=== PATIENT | female | born 1990 | race Asian ===

== ENCOUNTER 2023-11-28 20:48 | Emergency (ER) | payer OTHER, SELFPAY ==
[2023-11-28 20:49] VITALS: BMI 30.3
[2023-11-28 20:50] VITALS: BP 123/84
[2023-11-28 21:09] LABS: % Basophils 0.4 % (0-2); % Eosinophils 1.5 % (0-6); % Immature Granulocytes 0.5 % (0-0.5); % Lymphocytes 28.7 % (20.5-51.1); % Monocytes 6.4 % (1.7-9.3); % Neutrophils 62.5 % (42.2-75.2); Absolute Eosinophils 0.1 10^3/uL (0-0.7); Absolute Lymphocytes 2.2 10^3/uL (1.2-3.4); Absolute Monocytes 0.5 10^3/uL (0.1-0.6); Absolute Neutrophils 4.7 10^3/uL (1.4-6.5); Hematocrit 35.6 % (37.0-47.0); Hemoglobin 12.5 g/dL (12.0-16.0); Mean Corp Hgb Conc. 35.1 g/dL (33.0-37.0); Mean Corpuscular Hgb 26.7 pg (27.0-31.0); Mean Corpuscular Volume 76.1 fL (81.0-99.0); Mean Platelet Volume 10.6 fL (7.4-10.4); Nucleated Red Blood Cells % 0 %; Platelet Count 207 10^3/uL (130-400); Red Blood Cell Count 4.68 10^6/uL (4.20-5.40); Red Cell Dist. Width 13.4 % (11.5-14.5); White Blood Cell Count 7.5 10^3/uL (4.8-10.8)
[2023-11-28 21:26] LABS: ALT (SGPT) 51 U/L (0-35); AST (SGOT) 48 U/L (14-36); Albumin 4.6 g/dl (3.5-5.0); Alkaline Phosphatase 90 U/L (38-126); Blood Urea Nitrogen 10 mg/dl (7-17); Calcium 9.7 mg/dl (8.4-10.2); Carbon Dioxide 19 mmol/L (22-30); Chloride 105 mmol/L (98-107); Glucose 175 mg/dl (70-99); Potassium 4.1 mmol/L (3.5-5.1); Sodium 137 mmol/L (135-145); Total Bilirubin 0.4 mg/dl (0.2-1.3); Total Protein 7.7 g/dl (6.3-8.2); eGFR > 60.00
[2023-11-28 21:33] LABS: Troponin I < 0.012 ng/ml
[2023-11-28 22:18] VITALS: BP 121/66
[2023-11-28 23:00] VITALS: BP 112/79
--- NOTE | 2023-11-28 23:21 | ED.GENMED ---
History of Present Illness
General
Chief Complaint: Chest Pain
Source: patient, spouse and previous hospital records (Previous ED visit April 15, 2023 with somewhat similar-multiple seemingly unrelated complaints. Unremarkable ED visit at that time.)
Exam Limitations: none
Time Seen by Provider: 11/28/23 22:52
Nursing documentation reviewed up to this point in time: agreed with
History of Present Illness
History of Present Illness:
This is a 33-year-old woman who has history of hmz-sqnhcyn-qbentmolm diabetes that was diagnosed January 2023, history of hyperlipidemia, PCOS. She was started on metformin 500 mg once daily 4 to 5 months ago but with uptrend in hemoglobin A1c,
metformin was titrated up over a month ago to twice daily dosing. With increased dosage patient complains of ongoing abdominal discomfort, frequent diarrhea and after discussing ongoing GI distress with her PCP 2 weeks ago she was recommended to
discontinue twice daily dosing and to return to once daily dosing. Unfortunately she has run out of her metformin 1 week ago, her PCP is currently on vacation, and office staff have not refilled the metformin due to confusion as to ultimate plan
with her diabetes medications.
Along with metformin she is chronically maintained on rosuvastatin as well as spironolactone. She has not run out of these medications.
She also notes intermittent substernal chest pain that began yesterday but has had similar sporadic chest pain over a number of months and presented to this ED April 2023 with similar chest pain. Chest pain is sporadic in nature, questionably
worsened with activity but also noted when she is sitting quietly. She notes intermittent shortness of breath but not necessarily associated with her chest pain. Rare dry cough, sporadic for a few weeks but no fever nor chills. She has had some
intermittent right ear discomfort, occasional nasal congestion but no sore throat.
No palpitations, no dizziness nor lightheadedness, no headache.
She denies risk of but states menses have been very irregular with last menstrual period approximately 2 months ago.
She admits to chronic difficulty losing weight and has discussed weight loss options with her PCP including initiation of a GLP-1 agonist but was recommended to trial metformin first.
No recent travel, she denies leg pain or swelling.
No history of thromboembolism nor CAD nor family history of such.
Her PCP is currently on vacation; she has not attempted to speak with nor make an appointment with another physician in her PCPs practice.
Past History
Past History
ED Past Medical History: Hypercholesterolemia, NIDDM and Other (Obesity)
ED Past Surgical History:
Social History
Tobacco: Non-smoker
Alcohol: None
Drug: None
Personal:
Living: with family
Employment: Not employed
Family History
Family History: Other (Noncontributory)
Phy Exam
Physical Exam
Physical Exam:
GENERAL: 33-year-old woman appears her stated age, awake and alert, pleasant, easily communicative, appears in no acute distress. as well as toddler daughter are accompanying.
EYE: anicteric
NECK: Supple, nontender, no meningismus, no significant adenopathy.
ENT: posterior pharynx is clear, oral mucosa is moist. TM clear b/l, nares patent. Mild tenderness at bilateral TMJ joints. There is full mandible range of motion without difficulty.
CARDIAC: Regular rate and rhythm. no murmur. No rub.
LUNGS: Clear breath sounds bilaterally, no acute respiratory distress, no wheezes/rales/rhonchi
ABDOMEN: Soft, nondistended, without focal tenderness, no r/g, no cvat. normoactive BS.
NEUROLOGICAL: Alert and oriented x3, no focal neuro deficits. Gait is beasley and steady.
SKIN: Warm and dry, normal color, skin intact. No rash.
MUSCULOSKELETAL: No C/C/E. peripheral pulses are full and equal b/l. No palpable tenderness.
PSYCH: Normal and appropriate interaction.
Scores
Heart Score for Chest Pain Patients
STEMI patient?: No
History: Slightly or Non-Suspicious
ECG: Normal
Age: </= 45 years
Risk Factors: 1 or 2 Risk Factors
Troponin: </= Normal Limit
Heart Score for Chest Pain Patients: 1
Heart Score Risk: 2.5% MACE over next 6 weeks
Course
Orders/Labs/Results
Orders:
Orders
11/28/23 20:53
Electrocardiogram (*1) Urgent
Reason for Study: Chest Pain
EKG- Treatment ONCE
11/28/23 21:04
CMP [Comprehensive Metabolic Panel] Urgent
Complete Blood Count/With Diff Urgent
HCG, Serum Qualitative Screen Urgent
NT-proBNP Urgent
Comment: ADD ON
Troponin I Urgent
11/28/23 22:59
Add On- LAB Urgent
Tests Added?: BNP
11/28/23 23:19
Add On- LAB Urgent
Tests Added?: serum qual HCG
Abnormal Lab Results
11/28/23
21:04
Hct 35.6 L %
(37.0-47.0)
MCV 76.1 L fL
(81.0-99.0)
MCH 26.7 L pg
(27.0-31.0)
MPV 10.6 H fL
(7.4-10.4)
Carbon Dioxide 19 L mmol/L
(22-30)
Creatinine 0.5 L mg/dL
(0.6-1.0)
Glucose 175 H mg/dl
(70-99)
AST 48 H U/L
(14-36)
ALT 51 H U/L
(0-35)
11/28/23 21:04
11/28/23 21:04
Vital Signs
Initial and Last Documented VS:
Initial Vital Signs
Temp Pulse Resp BP Pulse Ox
98.0 F 82 16 123/84 97
11/28/23 20:50 11/28/23 20:50 11/28/23 20:50 11/28/23 20:50 11/28/23 20:50
Last Documented Vital Signs
Temp Pulse Resp BP Pulse Ox
97.9 F 78 18 102/75 98
11/28/23 22:18 11/29/23 00:26 11/29/23 00:26 11/29/23 00:26 11/29/23 00:26
MDM/Problems Addressed
Differential Diagnosis Includes:
Patient presents with multiple seemingly unrelated complaints, all sporadic, ongoing for a number of months perhaps longer.
She does have history of nondependent diabetes, currently tolerating once daily metformin but ran out of this a week ago.
Intermittent chest pain, intermittent shortness of breath, somewhat chronic right ear discomfort.
Overall exam is benign. Mild TMJ discomfort more so on the right than left which I suspect is cause for her right ear discomfort. TM, external canal are clear.
EKG is unremarkable and unchanged from previous in April.
Labs are unremarkable including negative troponin.
She does have an element of allergic rhinitis on exam and this may be a source of her intermittent cough, SOB.
Lungs are clear to auscultation.
Will check BNP as well as serum hCG.
Recommend resumption of once daily metformin, prescription will be provided.
As patient is overweight, has history of diabetes she certainly a candidate for GLP-1 agonist and recommend she discuss this possibility with her PCP. Many insurances require at least a 3-month trial of metformin which patient has already completed.
Intermittent chest pain may be an element of acid reflux, chest wall pain. Overall sporadic and mild in nature. No risk factors for thromboembolism.
If BNP, hCG negative will plan to discharge to home with a prescription for metformin and recommendations for prompt follow-up with PCP.
Chronic conditions affecting care: DM and Other (Hyperlipidemia)
*Pulse Oximetry
Patient hypoxic: no
*EKG
Interpreted by ED Provider?: Yes
Interpretation: normal
Comparison EKG: no changes (Unchanged from previous April 2023)
Rate: normal
Rhythm: sinus
[place]: normal axis
Interval: normal interval
QRS Pattern: normal QRS
Ischemia: no ischemia
*Personal Assistant Interpretation
Rate: normal
Interpretation: normal
Rhythm: sinus
*Critical Care Note
Total Time (30-74mins, 75-104mins- exclusive of procedures): Not Applicable
ED Attending Note
-
Portions of this chart may have been created with voice recognition software.� Occasional wrong word or��sound alike� substitutions may have occurred due to the inherent limitations of voice recognition software.
Discharge Plan
Departure
Patient Disposition: Home (Routine Discharge)
Date of Disposition: 11/29/23
Time of Disposition: 00:14
Patient with high blood pressure during this ER visit?: No
Condition: Good
Discharge Problem:
Nonspecific chest pain, NIDDM
Instructions: Chest Pain DCA Follow Up
Prescriptions:
New
metformin 500 mg tablet extended release 24 hr
500 mg PO DAILY Qty: 30 1RF
Ozempic 0.25 mg or 0.5 mg (2 mg/3 mL) pen injector
0.25 mg SC QWEEK Qty: 3 0RF
Rx Instructions:
for 4 weeks, then increase to 0.5 mg weekly
No Action
metformin 500 mg Tablet
500 mg PO DAILY
rosuvastatin 10 mg Tablet
10 mg PO DAILY
sulfamethoxazole-trimethoprim [Bactrim DS] 800-160 mg tablet
1 tab PO BID Qty: 13 0RF
Referrals:
NONE,* [Active] - Call in 1-3 days for appt
Interventions
Interventions:
*Risk Screen - Suicide Last Done: 11/28/23 22:50
*General Assessment Last Done: 11/28/23 20:50
*Neglect/Abuse Screening Last Done: 11/29/23 00:27
ED- Fall Risk Assessment Last Done: 11/28/23 22:35
*ED COVID-19 Vaccine History Last Done: 11/28/23 20:50
*Nursing Disposition Last Done: 11/29/23 00:30
ED- Cardiac Assessment Last Done: 11/28/23 22:33
Discharge Date and Time
Discharge Date/Time: 11/29/23 00:30
Print Language: GREENLANDIC
[2023-11-28 23:46] LABS: NT-proBNP < 20.0 pg/ml
[2023-11-29 00:06] LABS: HCG, Serum Qualitative Screen Negative
[2023-11-29 00:26] VITALS: BP 102/75
== END 2023-11-29 00:30 | disposition home or self-care (01) ==
LOC: EMR 20:48
PROVIDERS: Emergency Medicine; EMERGENCY PHYSICIAN Emergency Medicine
DX: R07.89 Other chest pain (principal); R10.9 Unspecified abdominal pain; R06.02 Shortness of breath; R19.7 Diarrhea, unspecified; M54.9 Dorsalgia, unspecified; R05.9 Cough, unspecified; E11.9 Type 2 diabetes mellitus without complications; J30.9 Allergic rhinitis, unspecified; E28.2 Polycystic ovarian syndrome; E78.00 Pure hypercholesterolemia, unspecified; E66.9 Obesity, unspecified; Z79.899 Other long term (current) drug therapy; Z79.84 Long term (current) use of oral hypoglycemic drugs
CPT/HCPCS: 99283; 80053; 83880; 84484; 84703; 85025; 93005

== ENCOUNTER 2024-06-03 22:11 | Emergency (ER) | payer OTHER, SELFPAY ==
[2024-06-03 22:14] VITALS: BP 127/94
[2024-06-03 22:38] LABS: % Basophils 0.2 % (0-2); % Eosinophils 1.3 % (0-6); % Immature Granulocytes 0.4 % (0-0.5); % Lymphocytes 30.7 % (20.5-51.1); % Monocytes 7.4 % (1.7-9.3); Absolute Eosinophils 0.1 10^3/uL (0-0.7); Absolute Lymphocytes 2.8 10^3/uL (1.2-3.4); Absolute Monocytes 0.7 10^3/uL (0.1-0.6); Absolute Neutrophils 5.4 10^3/uL (1.4-6.5); Hematocrit 37.2 % (37.0-47.0); Hemoglobin 12.6 g/dL (12.0-16.0); Mean Corp Hgb Conc. 33.9 g/dL (33.0-37.0); Mean Corpuscular Hgb 27.3 pg (27.0-31.0); Mean Corpuscular Volume 80.5 fL (81.0-99.0); Mean Platelet Volume 10.4 fL (7.4-10.4); Nucleated Red Blood Cells % 0 %; Platelet Count 212 10^3/uL (130-400); Red Blood Cell Count 4.62 10^6/uL (4.20-5.40); Red Cell Dist. Width 13.2 % (11.5-14.5)
[2024-06-03 22:56] LABS: ALT (SGPT) 27 U/L (0-35); AST (SGOT) 24 U/L (14-36); Albumin 4.5 g/dl (3.5-5.0); Alkaline Phosphatase 83 U/L (38-126); Blood Urea Nitrogen 10 mg/dl (7-17); Carbon Dioxide 24 mmol/L (22-30); Chloride 103 mmol/L (98-107); Glucose 123 mg/dl (70-99); Potassium 4.2 mmol/L (3.5-5.1); Sodium 138 mmol/L (135-145); Total Bilirubin 0.2 mg/dl (0.2-1.3); Total Protein 7.6 g/dl (6.3-8.2); eGFR > 60.00
[2024-06-03 23:16] VITALS: BP 128/92
[2024-06-03 23:19] LABS: Troponin I < 0.012 ng/ml
--- NOTE | 2024-06-03 23:21 | ED.GENMED ---
History of Present Illness
<ROLF Shen - Last Filed: 06/04/24 02:33>
General
Chief Complaint: Breathing Problem
Source: patient
Exam Limitations: none
Time Seen by Provider: 06/03/24 23:10
History of Present Illness
History of Present Illness:
This is a 33 year old female that comes in with c/o SOB and chest discomfort. States that she has trouble breathing when she lays down and sits. States that she has chest discomfort and pain in the middle of her back. States that this started 3 days
ago. States that she has an appointment with the PCP tomorrow but decided to come in tonight. States that she has discomfort with taking a deep breath. States that she has a headache across her forehead and feels it is hard to focus. Denies any
fever, chills, abd pain, nausea, vomiting, diarrhea, urinary burning
Past History
<ROLF Shen - Last Filed: 06/04/24 02:33>
Past History
ED Past Medical History: Hypercholesterolemia, NIDDM and Other (Obesity)
ED Past Surgical History:
Social History
Tobacco: Non-smoker
Alcohol: None
Drug: None
Personal:
Living: with family
Employment: Not employed
Family History
Family History: Other (Noncontributory)
Review of Systems
<ROLF Shen - Last Filed: 06/04/24 02:33>
Review of Systems
All Other Systems: ROS reviewed and negative except as documented in HPI and ROS
Constitutional: Reports no symptoms; Denies fever or chills
EENT: Reports no symptoms
Respiratory: Reports trouble breathing; Denies cough
Cardiac: Reports chest pain
ABD/GI: Reports no symptoms; Denies abdominal pain, nausea, vomiting or diarrhea
: Reports no symptoms; Denies dysuria, frequency or urgency
Musculoskeletal: Reports no symptoms
Skin: Reports no symptoms
Neurological: Reports headache (across her forehead) and other (hard to focus)
Psychiatric: Reports no symptoms
Phy Exam
<ROLF Shen - Last Filed: 06/04/24 02:33>
General Physical Exam
General Presentation: no apparent distress
General age: appears stated age
General Skin: warm and dry
General Habitus: normal
General Mental: alert
General Hydration: appears well hydrated
ENT Exam
ENT Exam: TM's normal, pharynx normal and neck supple
Eye Exam
Eye Exam: EOMI
Cardiovascular Exam
Cardiovascular Exam: regular rate/rhythm, no edema, no murmur and normal peripheral pulses
Pulmonary Exam
Pulmonary Exam: lungs clear, no respiratory distress, no rales, chest non tender, no crackles, no rhonchi, no wheezing and no cough
Gastrointestinal Exam
Gastrointestinal Exam: normal bowel sounds, soft, no organomegaly, no pulsatile mass, non distended and tender (Slight epigastric tenderness with palpation that cause pain up into her chest)
Musculoskeletal Exam
Musculoskeletal Exam: full ROM and no edema
Skin Exam
Skin Exam: normal color, warm/dry, no rash and no petechia
Psychiatric Exam
Psychiatric Exam: normal mood/affect
Course
<ROLF Shen - Last Filed: 06/04/24 02:33>
Orders/Labs/Results
Orders:
Orders
06/03/24 22:17
EKG [Electrocardiogram (*1)] Urgent
Reason for Study: Shortness of Breath
EKG- Treatment ONCE
06/03/24 22:30
Complete Blood Count/With Diff Urgent
Comprehensive Metabolic Panel Urgent
HCG, Serum Qualitative Screen Urgent
Comment: ADD ON
Troponin I Urgent
06/03/24 23:20
Add On- LAB Urgent
Tests Added?: HCG
COVID-19 Antigen Urgent
Source: Nasal Swab
D-Dimer Urgent
CR Chest - 2 Views Urgent
Comment:
Reason For Exam: SOB, chest pain
06/03/24 23:21
Pantoprazole [Protonix IV] 40 mg IV NOW STA
06/03/24 23:26
Electrocardiogram (*1) Urgent
Reason for Study: Chest Pain
Other Reason for Exam: Repeat with Troponin
EKG- Treatment ONCE
06/04/24 00:23
Troponin I Urgent
06/04/24 00:39
Sucralfate Suspension [Carafate Suspension] 1 gm PO NOW STA
Abnormal Lab Results
06/03/24
22:30
MCV 80.5 L fL
(81.0-99.0)
Absolute Monos (auto) 0.7 H 10^3/uL
(0.1-0.6)
Glucose 123 H mg/dl
(70-99)
06/03/24 22:30
06/03/24 22:30
Hyperglycemia. Troponin <0.012. COVID negative, HCG negative,
Vital Signs
Initial and Last Documented VS:
Initial Vital Signs
Temp Pulse Resp BP Pulse Ox
97.5 F 69 18 127/94 99
06/03/24 22:14 06/03/24 22:14 06/03/24 22:14 06/03/24 22:14 06/03/24 22:14
Last Documented Vital Signs
Temp Pulse Resp BP Pulse Ox
97.5 F 84 16 108/61 99
06/03/24 22:14 06/04/24 00:45 06/04/24 00:45 06/04/24 00:42 06/03/24 23:17
<Jose Aguayo, DO - Last Filed: 06/04/24 00:22>
Orders/Labs/Results
Orders:
Orders
06/03/24 22:17
EKG [Electrocardiogram (*1)] Urgent
Reason for Study: Shortness of Breath
EKG- Treatment ONCE
06/03/24 22:30
Complete Blood Count/With Diff Urgent
Comprehensive Metabolic Panel Urgent
HCG, Serum Qualitative Screen Urgent
Comment: ADD ON
Troponin I Urgent
06/03/24 23:20
Add On- LAB Urgent
Tests Added?: HCG
COVID-19 Antigen Urgent
Source: Nasal Swab
D-Dimer Urgent
CR Chest - 2 Views Urgent
Comment:
Reason For Exam: SOB, chest pain
06/03/24 23:21
Pantoprazole [Protonix IV] 40 mg IV NOW STA
06/03/24 23:26
Electrocardiogram (*1) Urgent
Reason for Study: Chest Pain
Other Reason for Exam: Repeat with Troponin
EKG- Treatment ONCE
06/04/24 00:23
Troponin I Urgent
06/04/24 00:39
Sucralfate Suspension [Carafate Suspension] 1 gm PO NOW STA
Abnormal Lab Results
06/03/24
22:30
MCV 80.5 L fL
(81.0-99.0)
Absolute Monos (auto) 0.7 H 10^3/uL
(0.1-0.6)
Glucose 123 H mg/dl
(70-99)
06/03/24 22:30
06/03/24 22:30
Vital Signs
Initial and Last Documented VS:
Initial Vital Signs
Temp Pulse Resp BP Pulse Ox
97.5 F 69 18 127/94 99
06/03/24 22:14 06/03/24 22:14 06/03/24 22:14 06/03/24 22:14 06/03/24 22:14
Last Documented Vital Signs
Temp Pulse Resp BP Pulse Ox
97.5 F 84 16 108/61 99
06/03/24 22:14 06/04/24 00:45 06/04/24 00:45 06/04/24 00:42 06/03/24 23:17
<ROLF Shen - Last Filed: 06/04/24 02:33>
MDM/Problems Addressed
Differential Diagnosis Includes:
COVID, PE,
MDM/Problems Addressed:
This is a 33 year old female that comes in with c/o chest pain and SOB. States that this started 3 days ago and that when she sits or lays down she has pain.
Will check labs, Chest x-ray. Medicate for Reflux
Repeat Troponin: rate 58, Sinus oleksandr, Sinus arrhythmia, Normal axis. Normal QRS. Negative for ischemia. Checked by Dr Aguayo.
Chronic conditions affecting care: DM
Acute Exacerbation and/or Progression of Chronic Illness:
NA
<ROLF Shen - Last Filed: 06/04/24 02:33>
*Pulse Oximetry
Patient hypoxic: no
*EKG
Interpreted by ED Provider?: Yes
Heart Rate: 61
Rate: normal
Rhythm: sinus arrhythmia
[place]: normal axis
Interval: normal interval
QRS Pattern: normal QRS
Ischemia: no ischemia
*Manager Area Interpretation
Rate: normal
Heart Rate: 65
Rhythm: sinus
*Critical Care Note
Total Time (30-74mins, 75-104mins- exclusive of procedures): Not Applicable
ED Attending Note
<ROLF Shen - Last Filed: 06/04/24 02:33>
-
Portions of this chart may have been created with voice recognition software.� Occasional wrong word or��sound alike� substitutions may have occurred due to the inherent limitations of voice recognition software.
<Jose Aguayo, DO - Last Filed: 06/04/24 00:22>
ED Attending Note
Patient seen and examined by attending physician: Yes
ED Attending Note:
Pleasant 73-year-old female presents with shortness of breath when lying down. Patient also reports dizziness and chest discomfort. Patient states that her symptoms are exacerbated by taking a deep breath. Denies fever, chills, nausea or
vomiting. Patient was seen in conjunction with the nurse practitioner. I have reviewed and agree with the history and treatment plan presented. On my independent physical exam, patient is awake, alert, and oriented x3, minimal acute distress
while lying in bed. Heart is regular rate and rhythm. Lungs are clear to auscultation bilaterally without wheezes rales or rhonchi present.
Plan is imaging, lab work.
Discharge Plan
Departure
Patient Disposition: Home (Routine Discharge)
Patient with high blood pressure during this ER visit?: Yes
Condition: Good
Covid-19: Negative COVID-19
Discharge Problem:
Chest pain due to GERD
Instructions: Acid reflux and GERD in adults, BLOOD PRESSURE
Prescriptions:
New
pantoprazole [Protonix] 40 mg tablet,delayed release (DR/EC)
40 mg PO DAILY Qty: 30 0RF
sucralfate [Carafate] 1 gram tablet
1 g PO ACHS Qty: 40 0RF
Rx Instructions:
Dissolve in 2 tsp water and drink 30min-1hour before meals and HS
No Action
metformin 500 mg Tablet
500 mg PO DAILY
rosuvastatin 10 mg Tablet
10 mg PO DAILY
sulfamethoxazole-trimethoprim [Bactrim DS] 800-160 mg tablet
1 tab PO BID Qty: 13 0RF
metformin 500 mg tablet extended release 24 hr
500 mg PO DAILY Qty: 30 1RF
Ozempic 0.25 mg or 0.5 mg (2 mg/3 mL) pen injector
0.25 mg SC QWEEK Qty: 3 0RF
Rx Instructions:
for 4 weeks, then increase to 0.5 mg weekly
Referrals:
Ruth Waddell MD [Family Provider] - Tomorrow
Activity Restrictions/Additional Instructions:
As discussed, your blood work is normal along with your chest x-ray. Your D-dimer is negative and both Troponin are normal. You are also COVID negative. Please follow up with the family doctor for recheck tomorrow as scheduled. This may all be due
to Reflux. You have had 2 prescriptions sent to your pharmacy. Please take as directed. Try and Decrease your Tea intake due to the caffeine as this makes the reflux worse. IF YOU HAVE INCREASED OR CHANGING PAIN, OR YOU HAVE ANY OTHER CONCERNS
PLEASE RETURN TO THE EMERGENCY ROOM
Interventions
Interventions:
*Risk Screen - Suicide Last Done: 06/03/24 22:16
*General Assessment Last Done: 06/03/24 22:16
*Neglect/Abuse Screening Last Done: 06/03/24 22:16
*ED COVID-19 Vaccine History Last Done: 06/03/24 22:16
*Nursing Disposition Last Done: 06/04/24 01:30
ED- Cardiac Assessment Last Done: 06/04/24 00:53
ED- Pulmonary Assessment Last Done: 06/04/24 00:53
Discharge Date and Time
Discharge Date/Time: 06/04/24 01:30
Print Language: ROMANIAN
[2024-06-04 00:10] LABS: HCG, Serum Qualitative Screen Negative
[2024-06-04] MEDS: PROTONIX IV 40 MG IV (00:38)
[2024-06-04 00:42] VITALS: BP 108/61
[2024-06-04] MEDS: CARAFATE SUSPENSION 1 GM PO (00:44)
[2024-06-04 00:46] LABS: COVID-19 Antigen Negative (Negative)
[2024-06-04 01:00] LABS: D-Dimer < 0.27 ug/mlFEU (0.00-0.50)
[2024-06-04 01:55] LABS: Troponin I < 0.012 ng/ml
--- NOTE | 2024-06-04 02:11 | DOWNTIME ---
There was a [employer] Client [employer] Downtime on 06/04/2024 from 0100 to 06/04/2024 at 0205 . Downtime documentation of patient's care, including medication administrations, has been reconciled in the electronic record per guidelines. Refer to the
patient's paper chart under the miscellaneous tab to see printed paper medication records and downtime forms.
== END 2024-06-04 01:30 | disposition home or self-care (01) ==
LOC: EMR 22:11
PROVIDERS: Clinical Nurse Specialist Family Health; Student in an Organized Health Care Education/Training Program; EMERGENCY PHYSICIAN Student in an Organized Health Care Education/Training Program; FAMILY PHYSICIAN Internal Medicine
DX: R07.89 Other chest pain (principal); K21.9 Gastro-esophageal reflux disease without esophagitis; E78.00 Pure hypercholesterolemia, unspecified; E11.9 Type 2 diabetes mellitus without complications
CPT/HCPCS: 99285; 96374; 71046; 80053; 84484; 84703; 85025; 85379; 87811; 93005

== ENCOUNTER 2024-10-25 10:25 | Emergency (ER) | payer OTHER, SELFPAY ==
[2024-10-25 10:28] VITALS: BP 121/74
--- NOTE | 2024-10-25 10:54 | ED.GENMED ---
History of Present Illness
General
Chief Complaint: Musculo-Skeletal Complaint
Source: patient
Time Seen by Provider: 10/25/24 10:44
History of Present Illness
History of Present Illness:
Note:
CHIEF COMPLAINT(S)
Foot pain following an injury.
HISTORY OF PRESENT ILLNESS
The patient is a 34-year-old female who presented with left foot pain following an injury sustained while exercising. The incident occurred two days ago while she was performing a plank, and she described her foot as having moved backward awkwardly,
which led to pain. Initially, she managed the discomfort with ibuprofen and cold compression. She reported that the swelling and pain have intensified today, impacting her ability to walk. She denies any other injuries.
Past History
Past History
ED Past Medical History: Hypercholesterolemia, NIDDM and Other (Obesity)
ED Past Surgical History:
Social History
Tobacco: Non-smoker
Alcohol: None
Drug: None
Personal:
Living: with family
Employment: Not employed
Family History
Family History: Other (Noncontributory)
Review of Systems
Review of Systems
All Other Systems: ROS reviewed and negative except as documented in HPI and ROS
Phy Exam
Physical Exam
Physical Exam:
GENERAL: Alert , in no apparent distress
EYE: conjunctiva clear
Head: Normocephalic atraumatic
NECK: Supple,
ENT: mmm.
LUNGS: no acute respiratory distress
NEUROLOGICAL: Alert and oriented
SKIN: Warm and dry, skin intact.
MUSCULOSKELETAL: Right foot: Minimal soft tissue swelling appreciated. There is tenderness over the dorsal and plantar aspect of the first metatarsal. No breaks in the skin. No overlying erythema, ecchymosis, abrasions or lacerations. Intact and
equal pedal and tibial pulses. Cap refill less than 2 seconds. Sensory grossly intact to light touch
PSYCH: Normal and appropriate interaction.
Scores
Heart Failure Risk
Heart Failure Risk Score: Not Applicable
Heart Score for Chest Pain Patients
STEMI patient?: Not applicable
Withdrawal Assessment of Alcohol
Withdrawal Assessment Completed?: Not applicable
Course
Orders/Labs/Results
Orders:
Orders
10/25/24 10:26
CR Foot - Right Min 3 Views Urgent
Comment:
Reason For Exam: pain, swelling
10/25/24 10:55
Crutches-Treatment ONCE
Ortho Boot Right- Treatment ONCE
Short or tall?: Short
10/25/24 11:16
Ibuprofen [Motrin] 600 mg PO NOW STA
10/25/24 11:17
Ibuprofen [Motrin] 600 mg .ROUTE .STK-MED ONE
Vital Signs
Initial and Last Documented VS:
Initial Vital Signs
Temp Pulse Resp BP Pulse Ox
98.1 F 65 16 121/74 98
10/25/24 10:28 10/25/24 10:28 10/25/24 10:28 10/25/24 10:28 10/25/24 10:28
Last Documented Vital Signs
Temp Pulse Resp BP Pulse Ox
98.1 F 65 16 121/74 98
10/25/24 10:28 10/25/24 10:28 10/25/24 10:28 10/25/24 10:28 10/25/24 10:28
MDM/Problems Addressed
Differential Diagnosis Includes:
- Ankle sprain
- Ligament injury
- Tendon injury
- Stress fracture
- Soft tissue contusion
- Peroneal tendinitis
- Plantar fasciitis
- Metatarsalgia
- Nerve impingement
MDM/Problems Addressed:
34-year-old female presented the ER for evaluation of right foot injury sustained 2 days ago, initially pain more mild, today much more prominent and having a hard time walking. X-ray of the foot was ordered, my read was no acute fracture but
radiology did feel that there was a possible nondisplaced fracture of the sesamoid bone of the first metatarsal. Patient was placed in an orthopedic boot and crutches were provided. Advised NSAIDs/Tylenol as needed for pain. Information for
orthopedics were provided. Patient advised on return precautions but otherwise stable for discharge home.
*Radiology
Radiology exam reviewed: preliminary read by ED provider and radiology read reviewed
*Pulse Oximetry
Patient hypoxic: no
Comment: 98
*Critical Care Note
Total Time (30-74mins, 75-104mins- exclusive of procedures): Not Applicable
ED Attending Note
-
Portions of this chart may have been created with voice recognition software.� Occasional wrong word or��sound alike� substitutions may have occurred due to the inherent limitations of voice recognition software.
Discharge Plan
Departure
Patient Disposition: Home (Routine Discharge)
Date of Disposition: 10/25/24
Time of Disposition: 10:54
Patient with high blood pressure during this ER visit?: No
Discharge Problem:
Acute pain of right foot
Instructions: Foot sprain - ED discharge instructions
Prescriptions:
No Action
metformin 500 mg Tablet
500 mg PO DAILY
rosuvastatin 10 mg Tablet
10 mg PO DAILY
sulfamethoxazole-trimethoprim [Bactrim DS] 800-160 mg tablet
1 tab PO BID Qty: 13 0RF
metformin 500 mg tablet extended release 24 hr
500 mg PO DAILY Qty: 30 1RF
Ozempic 0.25 mg or 0.5 mg (2 mg/3 mL) pen injector
0.25 mg SC QWEEK Qty: 3 0RF
Rx Instructions:
for 4 weeks, then increase to 0.5 mg weekly
pantoprazole [Protonix] 40 mg tablet,delayed release (DR/EC)
40 mg PO DAILY Qty: 30 0RF
sucralfate [Carafate] 1 gram tablet
1 g PO ACHS Qty: 40 0RF
Rx Instructions:
Dissolve in 2 tsp water and drink 30min-1hour before meals and HS
Referrals:
Gregory Montano MD [Active, Orthopedics]
Referral Note: Orthopedist - Please call for appointment
Ruth Waddell MD [Family Provider, Internal Medicine]
Interventions
Interventions:
*Risk Screen - Suicide Last Done: 10/25/24 10:28
*General Assessment Last Done: 10/25/24 10:28
*Neglect/Abuse Screening Last Done: 10/25/24 10:28
*ED- Fall Risk Assessment Last Done: 10/25/24 11:27
*ED COVID-19 Vaccine History Last Done: 10/25/24 11:27
*Nursing Disposition Last Done: 10/25/24 11:27
ED-Musculoskeletal Assessment Last Done: 10/25/24 11:25
Discharge Date and Time
Discharge Date/Time: 10/25/24 11:30
Print Language: [id number]
[2024-10-25] MEDS: MOTRIN 600 MG PO (11:19)
== END 2024-10-25 11:30 | disposition home or self-care (01) ==
LOC: EMR 10:25
PROVIDERS: EMERGENCY PHYSICIAN Emergency Medicine; FAMILY PHYSICIAN Internal Medicine
DX: M79.671 Pain in right foot (principal); E78.00 Pure hypercholesterolemia, unspecified; E11.9 Type 2 diabetes mellitus without complications
CPT/HCPCS: 99283; 73630